=== PATIENT | male | born 1970 | race African-American/Black ===

== ENCOUNTER → 2016-11-07 | Outpatient (CLI) | payer OTHER ==
--- NOTE | ~2016-11-07 | CR243 ---
[facility]. [facility] A Service of [facility] & [facility] [place] RADIOLOGY TEXT RESULTS PATIENT: DIDI NORMAN LOCATION: [facility] : 70 UNIT #: [id number] AGE: [address]: MIMI DOMINGUEZ APRN SEX: M ORDER DR: [id number] [address] [address] [id number] O MR#: [id number] Acc #: [id number] NAME: DIDI NORMAN : 1970 SEX: M STUDY DATE/TIME: 11/07/2016 11:51 UNIT: SRAD ROOM: STUDY DESCRIPTION: CR Thoracic Spine 3 Views Attending Physician: Mimi Dominguez Aprn Ordering Physician: Mimi Dominguez Aprn MEDICAL IMAGING REPORT This report is preliminary unless electronic signature is present. EXAM Thoracic spine 3 views 11/07/2016 HISTORY Thoracic back pain for 6 months with bilateral lower extremity numbness and tingling. No known injury. FINDINGS AP and lateral examination of the dorsal segment shows normal mineralization and a satisfactory anatomical dorsal kyphosis. All body heights, interspaces, and posterior elements are normal anatomically without any indication of malignancy, trauma, unusual paraspinal soft tissue density mass, or congenital defect. IMPRESSION Normal thoracic spine. Dictated by... Festus Lanza M.D. THIS IS AN ELECTRONICALLY VERIFIED REPORT Festus Lanza M.D. at 11/09/2016 8:18 AM KRT/to TD: 11/07/2016 22:21 JOB #: [id number] MEDICAL IMAGING REPORT Page 1 of 1
--- NOTE | ~2016-11-07 | CR58 ---
[facility] A Service of [facility] & [facility] RADIOLOGY TEXT RESULTS PATIENT: DIDI NORMAN LOCATION: [facility] : 70 UNIT #: [id number] AGE: [address]: MIMI DOMINGUEZ APRN SEX: M ORDER DR: [id number] [address] [address] [id number] O MR#: [id number] Acc #: [id number] NAME: DIDI NORMAN : 1970 SEX: M STUDY DATE/TIME: 11/07/2016 11:51 UNIT: SRAD ROOM: STUDY DESCRIPTION: CR Cervical Spine 2 or 3 Views Attending Physician: Mimi Dominguez Aprn Ordering Physician: Mimi Dominguez Aprn MEDICAL IMAGING REPORT This report is preliminary unless electronic signature is present. EXAM Cervical spine 6 views 11/07/2016 HISTORY Neck pain for 6 months with bilateral upper extremity numbness and tingling. No known injury. FINDINGS AP and lateral projections of the cervical spine show satisfactory preservation of the cervical lordosis. The cervical soft tissues are normal. All anterior and posterior elements in the cervical area are anatomically normal without identifiable fracture, dislocation, malignant lytic or sclerotic change, or arthritis. There is no congenital defect apparent. IMPRESSION Normal cervical spine. Dictated by... Festus Lanza M.D. THIS IS AN ELECTRONICALLY VERIFIED REPORT Festus Lanza M.D. at 11/09/2016 8:18 AM KRT/to TD: 11/07/2016 22:26 JOB #: [id number] MEDICAL IMAGING REPORT Page 1 of 1
--- NOTE | ~2016-11-07 | CR181 ---
[facility] A Service of [facility] & [facility] RADIOLOGY TEXT RESULTS PATIENT: DIDI NORMAN LOCATION: [facility] : 70 UNIT #: [id number] AGE: [address]: MIMI DOMINGUEZ APRN SEX: M ORDER DR: [id number] [address] [address] [id number] O MR#: [id number] Acc #: [id number] NAME: DIDI NORMAN : 1970 SEX: M STUDY DATE/TIME: 11/07/2016 11:55 UNIT: SRAD ROOM: STUDY DESCRIPTION: CR Lumbar Spine 2 or 3 Views Attending Physician: Mimi Dominguez Aprn Ordering Physician: Mimi Dominguez Aprn MEDICAL IMAGING REPORT This report is preliminary unless electronic signature is present. EXAM Lumbar spine 3 views, 11/07/2016 HISTORY Low back pain and bilateral lower extremity numbness and tingling for 6 months with no known injury. FINDINGS AP and lateral projections of the lumbar segment show good mineralization of both anterior and posterior elements. They are all anatomically normal without indication of fracture, dislocation, or malignant change of a sclerotic or lytic type. There is no congenital defect noted. The sacroiliac joints are normal. IMPRESSION Normal lumbar spine. Dictated by... Festus Lanza M.D. THIS IS AN ELECTRONICALLY VERIFIED REPORT Festus Lanza M.D. at 11/09/2016 8:18 AM NORRIS/efrem TD: 11/07/2016 22:36 JOB #: [id number] MEDICAL IMAGING REPORT Page 1 of 1
== END | disposition home or self-care (01) ==
LOC: SRAD 11:17
DX: M54.9 Dorsalgia, unspecified (principal)
CPT/HCPCS: 72040; 72072; 72100